=== PATIENT | male | born 1995 | race Caucasian/White ===

== ENCOUNTER 2019-02-02 13:02 | Emergency (ER) | payer OTHER ==
[~2019-02-02] VITALS: Ht 187.9 cm; Wt 113.4 kg
[~2019-02-02 13:02] MED LIST: MOTRIN IB200 MG PO; MOTRIN800 MG PO; NKHM
[2019-02-02 13:03] VITALS: BP 142/72
== END 2019-02-02 15:30 | disposition home or self-care (01) ==
LOC: ED 13:02
DX: S80.11XA Contusion of right lower leg, initial encounter (principal); J45.909 Unspecified asthma, uncomplicated; Z91.040 Latex allergy status; V89.2XXA Person injured in unspecified motor-vehicle accident, traffic, initial encounter; Y93.89 Activity, other specified; Y92.89 Other specified places as the place of occurrence of the external cause; Y99.8 Other external cause status

== ENCOUNTER 2019-02-05 12:09 | Emergency (ER) | payer OTHER ==
[2019-02-05 12:10] VITALS: BP 129/76
== END 2019-02-05 14:35 | disposition home or self-care (01) ==
LOC: ED 12:09
DX: R51 Headache (principal); R11.0 Nausea; H53.149 Visual discomfort, unspecified; J45.909 Unspecified asthma, uncomplicated; F17.200 Nicotine dependence, unspecified, uncomplicated; Z91.040 Latex allergy status